=== PATIENT | female | born 1965 | race Caucasian/White ===

== ENCOUNTER 2017-10-12 09:59 | Outpatient (CLI) | payer BC | END 2017-10-12 10:00 | disposition home or self-care (01) | LOC: BICMAMMO 09:59 | PROVIDERS: ATTEND Family Medicine | DX: Z12.31 Encounter for screening mammogram for malignant neoplasm of breast (principal); Z13.820 Encounter for screening for osteoporosis; M85.80 Other specified disorders of bone density and structure, unspecified site; Z80.3 Family history of malignant neoplasm of breast | CPT/HCPCS: 77063; 77067; 77080 ==

== ENCOUNTER 2019-04-16 08:02 | Outpatient (CLI) | payer BC ==
--- NOTE | 2019-04-16 09:15 | MMO ---
Bilateral MAMMO Bilat Screen [facility]. CLINICAL HISTORY: Patient is 53 years old and is seen for screening. The patient has the following family history of breast cancer: maternal aunt. The patient has no personal history of cancer. VIEWS: The views performed were: bilateral craniocaudal with tomosynthesis and bilateral mediolateral oblique with tomosynthesis. FILMS COMPARED: The present examination has been compared to prior imaging studies performed at [facility] on 10/07/2011, 08/15/2015, 09/23/2016 and 10/12/2017. This study has been interpreted with the assistance of computer-aided detection. MAMMOGRAM FINDINGS: There are scattered fibroglandular densities. There are no suspicious masses, suspicious calcifications, or new areas of architectural distortion. IMPRESSION: THERE IS NO MAMMOGRAPHIC EVIDENCE OF MALIGNANCY. A ROUTINE FOLLOW-UP MAMMOGRAM IN 1 YEAR IS RECOMMENDED. THE RESULTS OF THIS EXAM WERE SENT TO THE PATIENT. ACR BI-RADS Category 1 - Negative MAMMOGRAPHY NOTE: 1. A negative mammogram report should not delay a biopsy if a dominant of clinically suspicious mass is present. 2. Approximately 10% to 15% of breast cancers are not detected by mammography. 3. Adenosis and dense breasts may obscure an underlying neoplasm. Reported by: RODRIGUE GARCIA MD Electonically Signed: [id number]
== END 2019-04-16 08:03 | disposition home or self-care (01) ==
LOC: BICMAMMO 08:02
PROVIDERS: ATTEND Family Medicine
DX: Z12.31 Encounter for screening mammogram for malignant neoplasm of breast (principal)
CPT/HCPCS: 77063; 77067

== ENCOUNTER 2020-10-15 11:55 | Outpatient (CLI) | payer BC | END 2020-10-15 11:56 | disposition home or self-care (01) | LOC: BICMAMMO 11:55 | PROVIDERS: ATTEND Family Medicine | DX: Z12.31 Encounter for screening mammogram for malignant neoplasm of breast (principal) | CPT/HCPCS: 77063; 77067 ==

== ENCOUNTER 2023-07-19 20:15 | Emergency (ER) | payer BC, OTHER ==
[2023-07-19] MEDS ORDERED: Albuterol 200 PUFF (6.7GM INHALER) ONE (21:04)
[2023-07-19 22:05] LABS: SARS-CoV-2 NAA Rapid Test Not Detected (NotDetected)
[2023-07-19] MEDS ORDERED: Ketorolac Tromethamine 30 MG (1 mL) VIAL ONE (22:34)
== END 2023-07-19 22:46 | disposition home or self-care (01) ==
LOC: ERS 20:15 → EEVIPCON 20:15 → ERS 22:46
DX: J10.1 Influenza due to other identified influenza virus with other respiratory manifestations (principal); I10 Essential (primary) hypertension; Z87.891 Personal history of nicotine dependence
CPT/HCPCS: 71045; 96372; J1885

== ENCOUNTER 2023-10-06 14:44 | Outpatient (CLI) | payer BC | END 2023-10-06 14:45 | disposition home or self-care (01) | LOC: BICMAMMO 14:44 | PROVIDERS: ATTEND Nurse Practitioner Family | DX: Z12.31 Encounter for screening mammogram for malignant neoplasm of breast (principal); Z80.3 Family history of malignant neoplasm of breast | CPT/HCPCS: 77063; 77067 ==

== ENCOUNTER 2025-03-06 13:40 | Outpatient (CLI) | payer OTHER | END 2025-03-06 13:41 | disposition home or self-care (01) | LOC: BICULT 13:40 | PROVIDERS: ATTEND Nurse Practitioner Family | DX: R10.2 Pelvic and perineal pain (principal); R39.89 Other symptoms and signs involving the genitourinary system | CPT/HCPCS: 76770; 76856 ==